=== PATIENT | female | born 1940 | race Two or more races ===

== ENCOUNTER 2016-06-25 21:43 | Emergency (ER) | payer BC, MEDICARE ==
[~2016-06-25] VITALS: Ht 162.6 cm; Wt 77.1 kg
[2016-06-25] MEDS ORDERED: ONDANSETRON 4MG/2ML VIAL (J2405) IV ONE (23:15)
[2016-06-25] MEDS ORDERED: NS 500 ML IV ONE (23:15)
--- NOTE | 2016-06-25 23:40 | REPUSA ---
CT of the head Clinical history: dizziness. Protocol: Multiple axial CT images obtained with 5 mm slice thickness were obtained through the head without administration of contrast. Findings: The ventricles and sulci are symmetric bilaterally. There are periventricular areas of low attenuation throughout the deep white matter. There is no evidence of acute hemorrhage or infarct. Th ere is no midline shift, mass effect, or extra-axial fluid collection. The osseous structures are unr emarkable. The visualized paranasal sinuses and mastoid air cells are clear. Impression: No acute hemorrhage or infarct. 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
[2016-06-25 23:44] LABS: BASO % 0.1 % (0.0-1.0); EOS % 0.1 % (0.0-3.0); LARGE UNSTAINED CELL % 0.3 % (0.0-4.0); LYMPH # 0.7 K/mm3 (1.5-4.5); MEAN CORPUSCULAR HEMOGLOBIN 31.6 pg (27.0-33.0); MEAN CORPUSCULAR HGB CONC 35.3 g/dl (32.0-36.5); MEAN CORPUSCULAR VOLUME 89.4 fl (80.0-96.0); MONO # 0.4 K/mm3 (0.0-0.8); MONO % 3.4 % (0.0-5.0); NEUTROPHILS # 9.2 K/mm3 (1.8-7.7); NEUTROPHILS % 89.2 % (36.0-66.0); PLATELET COUNT, AUTOMATED 273 k/mm3 (150-450); RED CELL DISTRIBUTION WIDTH 12.8 % (11.5-14.5); WHITE BLOOD COUNT 10.3 K/mm3 (4.0-10.0)
[2016-06-25] MEDS ORDERED: LABETALOL HCL 100 MG/20 ML VIAL IV STA (23:47)
[2016-06-25 23:49] LABS: INR 0.99
[2016-06-25 23:55] LABS: ALBUMIN 4.3 GM/DL (3.2-5.2); ALBUMIN/GLOBULIN RATIO 0.93 (1.00-1.93); ALKALINE PHOSPHATASE 89 U/L (45-117); ALT/SGPT 36 U/L (12-78); ANION GAP 12 MEQ/L (8-16); AST/SGOT 29 U/L (15-37); BILIRUBIN,DIRECT < 0.1 MG/DL (0.0-0.2); BILIRUBIN,TOTAL 0.5 MG/DL (0.2-1.0); BLOOD UREA NITROGEN 17 MG/DL (7-18); CALCIUM LEVEL 9.3 MG/DL (8.8-10.2); CARBON DIOXIDE LEVEL 25 MEQ/L (21-32); CHLORIDE LEVEL 97 MEQ/L (98-107); GLOMERULAR FILTRATION RATE > 60.0 (>39); GLUCOSE, FASTING 136 MG/DL (83-110); POTASSIUM SERUM 3.1 MEQ/L (3.5-5.1); SODIUM LEVEL 134 MEQ/L (136-145); TOTAL PROTEIN 8.9 GM/DL (6.4-8.2)
[2016-06-26] MEDS ORDERED: LABETALOL 100 MG TAB PO ONE (02:15)
[2016-06-26] MEDS ORDERED: VALI2TAB PO (02:23)
[2016-06-26] MEDS ORDERED: LABE10TAB PO (02:23)
[2016-06-26 02:27] VITALS: BP 184/92
[2016-06-26] MEDS ORDERED: POTASSIUM CHLORIDE 10 MEQ SR TABLET PO ONE (02:30)
[2016-06-26 02:39] VITALS: BP 184/92
--- NOTE | 2016-06-26 10:34 | ECGEPIP ---
Stationary ECG Study [facility] - ED Test Date: 2016-06-25 Pat Name: SURENDRA FORD Department: Room: - Gender: F Watershed Coordinator: KolbB: 1940 Requested By: LUBA Mendoza Order Number: [id number] Reading MD: Prashanth Zimmerman Measurements Intervals [place] Rate: 85 P: 39 DE: 157 QRS: -1 QRSD: 104 T: 65 QT: 346 QTc: 413 Interpretive Statements SINUS RHYTHM WITH OCCASIONAL SUPRAVENTRICULAR PREMATURE COMPLEXES NONSPECIFIC ST & T-WAVE ABNORMALITY NO PRIORS Electronically Signed On 06-26-2016 10:33:59 EDT by Prashanth Zimmerman
== END 2016-06-26 02:50 | disposition home or self-care (01) ==
LOC: M ED 23:00
DX: I10 Essential (primary) hypertension (principal); R42 Dizziness and giddiness
CPT/HCPCS: 36415; 70450; 80048; 80076; 82550; 82553; 83690; 85025; 85610; 85730; 93005; 93041; 96361; 96374; 96375; 99285; J2405; J3360

== ENCOUNTER → 2016-06-27 | Outpatient (REF) | payer BC ==
[~2016-06-27] MED LIST: LABE10TAB PO; VALI2TAB PO
[2016-06-27 15:52] LABS: ANION GAP 9 MEQ/L (8-16); BLOOD UREA NITROGEN 20 MG/DL (7-18); CALCIUM LEVEL 9.6 MG/DL (8.8-10.2); CARBON DIOXIDE LEVEL 26 MEQ/L (21-32); CHLORIDE LEVEL 99 MEQ/L (98-107); CREATININE FOR GFR 0.65 MG/DL (0.55-1.02); GLOMERULAR FILTRATION RATE > 60.0 (>39); GLUCOSE, FASTING 108 MG/DL (83-110); POTASSIUM SERUM 3.3 MEQ/L (3.5-5.1); SODIUM LEVEL 134 MEQ/L (136-145)
== END ==
LOC: M SFHCPLAZ 14:36
PROVIDERS: ATTEND Family Medicine
DX: E87.6 Hypokalemia (principal)

== ENCOUNTER → 2016-07-09 | Outpatient (CLI) | payer BC, MEDICARE ==
[2016-07-09 10:44] LABS: ANION GAP 7 MEQ/L (8-16); BLOOD UREA NITROGEN 5 MG/DL (7-18); CALCIUM LEVEL 9.6 MG/DL (8.8-10.2); CARBON DIOXIDE LEVEL 32 MEQ/L (21-32); CHLORIDE LEVEL 104 MEQ/L (98-107); CHOLESTEROL LEVEL 192 MG/DL (<200); CREATININE FOR GFR 0.76 MG/DL (0.55-1.02); GLOMERULAR FILTRATION RATE > 60.0 (>39); GLUCOSE, FASTING 97 MG/DL (83-110); POTASSIUM SERUM 3.8 MEQ/L (3.5-5.1); SODIUM LEVEL 143 MEQ/L (136-145); TRIGLYCERIDES LEVEL 128 MG/DL (<150)
== END ==
LOC: M LAB 09:30
PROVIDERS: ATTEND Family Medicine
DX: I10 Essential (primary) hypertension (principal)

== ENCOUNTER 2017-01-08 12:43 | Emergency (ER) | payer BC, MEDICARE ==
[~2017-01-08] VITALS: Ht 162.6 cm; Wt 63.6 kg
[2017-01-08 12:44] VITALS: BP 159/85
[2017-01-08] MEDS ORDERED: AMLO10TA2 (13:01)
--- NOTE | 2017-01-08 14:44 | REP ---
Right humerus two views: There is a fracture in the anatomic neck of the humerus. There is no dislocation. Acromioclavicular joint is unremarkable. There is diffuse demineralization. Signed by Pola Nuñez MD 01/08/2017 02:35 P
[2017-01-08] MEDS ORDERED: PERC5TAB12 PO (15:15)
== END 2017-01-08 15:31 | disposition home or self-care (01) ==
LOC: M ED 12:43
DX: S42.291A Other displaced fracture of upper end of right humerus, initial encounter for closed fracture (principal); W19.XXXA Unspecified fall, initial encounter; Y92.019 Unspecified place in single-family (private) house as the place of occurrence of the external cause; Y93.89 Activity, other specified; Y99.8 Other external cause status; I10 Essential (primary) hypertension; Z79.899 Other long term (current) drug therapy